=== PATIENT | female | born 1985 | race Caucasian/White ===

== ENCOUNTER → 2016-08-13 | Outpatient (CLI) | payer BC, SELFPAY ==
--- NOTE | 2016-08-15 14:32 | NM ---
EXAM DATE: 08/13/16 PATIENT'S AGE: 31 Patient: VIPUL ROY Facility: [place], [place] Site Site : 1984 Study: NM Gallbladder [id number]/13/2017 9:54:48 AM Ordering Physician: MARTHA ALAMO Final Report: INDICATION: 31 year-old female. Right and left upper quadrant abdominal pain. TECHNIQUE: 3.7 mCi Tc-99m labeled Mebrofenin, 1.5 mcg CCK IV. COMPARISON: Correlation is made with a recent outside right upper quadrant ultrasound August 02, 2016 from [facility]. FINDINGS: There is normal uptake and excretion of tracer by the liver. Activity is identified promptly in the gallbladder within 15 minutes after injection. The gallbladder continues to fill up to 1 hour. After the administration of CCK the gallbladder ejection fraction is calculated at 73%. IMPRESSION: 1. No evidence for cystic duct or common duct obstruction. No biliary leak. 2. Normal gallbladder ejection fraction of 73%. Dictated by Dougie Giordano MD @ 08/13/2016 11:11:58 AM Dictated by: Dougie Giordano MD @ 08/13/2016 11:12:59 (Electronic Signature) Report Signed by Proxy and Original Signed Document filed in the Medical Record. [facility]
== END ==
LOC: MW.NM 08:12
PROVIDERS: ATTEND Physician Assistant
DX: R10.11 Right upper quadrant pain (principal); R10.12 Left upper quadrant pain
CPT/HCPCS: 78227; A9537; J2805

== ENCOUNTER 2020-05-17 10:59 | Day surgery (SDC) | payer BC ==
[2020-05-17] MEDS ORDERED: Lidocaine 2% 5 ML SDV INJECT ONE (12:30)
[2020-05-17] MEDS ORDERED: Ropivacaine 0.5% 5 MG/ML 30 ML SDV INJECT ONE (12:30)
[2020-05-17] MEDS ORDERED: Iopamidol 200-M 10 ML vial ITHECAL ONE (12:30)
[2020-05-17] MEDS ORDERED: Betamethasone Acetate/Betamethasone Sod Phosphate 30 MG/5 ML MDV EPIDUR ONE (12:30)
--- NOTE | 2020-05-17 16:48 | OR ---
SURGEON: Krysta Carty D.O. DATE OF PROCEDURE: 05/17/2020 PRIMARY SURGEON: Krysta Carty DO ASSISTANTS: OR staff present: 1. RT Deven. 2. Irena Perez RN. 3. Sandy Rodríguez RN. WOUND CLASS: I. PREOPERATIVE DIAGNOSES: 1. Thoracic facet syndrome. 2. Thoracic spondylosis bilateral T7,8,9,10. 3. Chronic thoracic back pain. POSTOPERATIVE DIAGNOSES: 1. Thoracic facet syndrome. 2. Thoracic spondylosis bilateral T7,8, 9,10. 3. Chronic thoracic back pain. PROCEDURES PERFORMED: 1. Bilateral T7, T8, T9 medial branch blocks.(Thoracic facet syndrome T7-8, T8- 9 and T9-10) 2. Fluoroscopic guidance for needle placement. 3. Local with oral Valium for sedation. SCREENING QUESTIONS: The patient answered "No" to all the following questions: 1. Are you allergic to iodine, Betadine or latex? 2. Do you have a bleeding disorder? 3. Are you on anti-inflammatories or blood thinners? 4. Do you have any current local or systemic infections? DESCRIPTION OF PROCEDURE: The patient had the procedure thoroughly explained including risks, benefits and alternatives. Consent was signed in my clinic indicating understanding and willingness to proceed. The patient presented to [facility] and was escorted to the dressing room to disrobe and change into a hospital gown. Preoperative history and screening were performed by my nurse. Vital signs were taken and stable. The patient reported that Valium 10 milligrams was taken prior to the procedure. The patient was brought back to the procedure room and placed in the prone position on the procedure room table. A pillow was placed under the abdomen in order to flatten the lumbar lordosis. The back was prepped with ChloraPrep and sterilely draped. All personnel in the procedure room were dressed in appropriate attire including surgical scrubs, head and shoe covers. This was to ensure sterility while in the treatment room. During the time fluoroscopy was in use all personnel in the operating room wore lead rojas with thyroid collars. Sterile technique was used during the procedure. The fluoroscope was positioned to provide a right oblique view. Then the right T7 medial branch block was begun by anesthetizing the skin and soft tissues with 2 cubic centimeters of 2% Preservative-Free Lidocaine with a 25-gauge 1.5 inch needle. There were no signs of infection at the site of needle skin insertions. Using fluoroscopic guidance a sterile 22-gauge 3.5 inch spinal needle was positioned at the superior lateral junction of transverse process of the T8 vertebral body. Precise needle placement was confirmed by fluoroscopy and 0.2 cubic centimeters of IsoVue-200 contrast dye which was injected through microbore tubing under live fluoroscopy and showed no intravascular flow pattern and adequate flow over the target T7 medial branch. Then 01.0 cubic centimeters of celestone and 0.5% Ropivacaine Preservative-Free was injected slowly without complications after negative aspiration. This was repeated as above on the left for the left T7 medial branch block. Then the fluoroscope was positioned to provide a right oblique view for the right T8 medial branch. This was begun by anesthetizing the skin and soft tissues. The fluoroscope was positioned and a sterile 22-gauge 3.5 inch needle was placed at the superior lateral junction of the transverse process of the T9 vertebral body. Precise needle placement was confirmed by fluoroscopy. Then 0.2 cubic centimeters of IsoVue-200 contrast dye was injected through microbore tubing under live fluoroscopy and showed no intravascular flow pattern and adequate flow over the target medial branch. After negative aspiration, 1.0 cubic centimeters of Celestone and 0.5% Ropivacaine was injected without complications. Procedure was repeated as above for the left T8 medial branch block The fluoroscope was then positioned to provide a right T9 medial branch block. This was begun by anesthetizing the skin and soft tissues. Then using fluoroscopic guidance, a sterile 22-gauge 3.5 inch spinal needle was positioned at the right superior lateral transverse process of the T10 vertebral body Precise needle placement was confirmed by fluoroscopy in AP and oblique views, and 0.2 cubic centimeters of IsoVue-200 contrast dye was injected through microbore tubing under live fluoroscopy and showed no intravascular flow pattern and adequate flow over the target T9 medial branch.. After negative aspiration, 1.0 cubic centimeters of Celestone and 0.5% Ropivacaine was injected. No complications were noted. Then the procedure was repeated as above for the left T9 medial branch block The procedure was well tolerated and vital signs were stable during and after the procedure. The staff escorted the patient to the recovery area. The patient was given both oral and written discharge and followup instructions. The patient will follow up with a pain diary which will be evaluated over this evening doing things that would normally cause pain. We will evaluate the efficacy of the diagnostic lumbar medial branch blocks as the patient will follow up in the clinic the next day. The patient was given both oral and written discharge and followup instructions. The patient voiced understanding including understanding of those signs and symptoms that would require emergency care and knows how to contact the office if there are any questions or concerns in the meantime. PREOPERATIVE PAIN: 12/10. POSTOPERATIVE PAIN: 06/12. FOLLOWUP: In the Pain Clinic in 3 weeks. HOGLCHR / KEONL /[id number] YOON
== END 2020-05-17 13:24 ==
LOC: MW.SDS 10:59
PROVIDERS: ATTEND Anesthesiology
DX: G89.29 Other chronic pain (principal); M51.14 Intervertebral disc disorders with radiculopathy, thoracic region; M47.24 Other spondylosis with radiculopathy, thoracic region; M47.894 Other spondylosis, thoracic region; Z88.8 Allergy status to other drugs, medicaments and biological substances; N62 Hypertrophy of breast; M51.36 Other intervertebral disc degeneration, lumbar region; M47.816 Spondylosis without myelopathy or radiculopathy, lumbar region; M79.18 Myalgia, other site; M41.9 Scoliosis, unspecified

== ENCOUNTER 2020-06-28 11:51 | Day surgery (SDC) | payer BC ==
[2020-06-28] MEDS ORDERED: Ropivacaine 0.5% 5 MG/ML 30 ML SDV INJECT ONE (13:00)
[2020-06-28] MEDS ORDERED: Betamethasone Acetate/Betamethasone Sod Phosphate 30 MG/5 ML MDV EPIDUR ONE (13:00)
[2020-06-28] MEDS ORDERED: Lidocaine 2% 5 ML SDV INJECT ONE (13:00)
[2020-06-28] MEDS ORDERED: Iopamidol 200-M 10 ML vial ITHECAL ONE (13:00)
--- NOTE | 2020-06-28 20:13 | OR ---
SURGEON: Krysta Carty D.O. DATE OF PROCEDURE: 06/28/2020 PRIMARY SURGEON: Krysta Carty D.O. TRACK OILER: OR staff present: 1. Ron Shetty RN. 2. Irena Perez RN. 3. Ron Santiago RT. WOUND CLASS: I. PREOPERATIVE DIAGNOSES: 1. Lumbar spondylosis. 2. Lumbar facet joint syndrome, L4-5, L5-S1. 3. Chronic low back pain. Postoperative diagnosis: same PROCEDURES PERFORMED: 1. Right L4-5 facet joint injection. 2. Right L5-S1 facet joint injection. 3. Left L4-5 facet joint injection. 4. Left L5-S1 facet joint injection. 5. Fluoroscopic guidance for needle placement. 6. Local with oral Valium for sedation. SCREENING QUESTIONS: The patient answered "No" to all the following questions: 1. Are you allergic to iodine, Betadine or latex? 2. Do you have a bleeding disorder? 3. Are you on anti-inflammatories or blood thinners? 4. Do you have any current local or systemic infections? The patient had the procedure thoroughly explained including risks, benefits and alternatives. Consent was signed in my clinic indicating understanding and willingness to proceed. The patient presented to [facility] and was escorted to the dressing room to disrobe and change into a hospital gown. Preoperative history and screening were performed by my nurse. Vital signs were taken and stable. The patient reported that Valium 10 milligrams was taken prior to the procedure. The patient was brought back to the procedure room and placed in the prone position on the procedure room table. A pillow was placed under the abdomen in order to flatten the lumbar lordosis. The back was prepped with ChloraPrep and sterilely draped. All personnel in the procedure room were dressed in appropriate attire including surgical scrubs, head and shoe covers. This was to ensure sterility while in the treatment room. During the time fluoroscopy was in use all personnel in the operating room wore lead rojas with thyroid collars. Sterile technique was used during the procedure. Then the fluoroscope was positioned to provide a right oblique view for the right L4-5 facet injection. This was begun by anesthetizing the skin and soft tissues. The fluoroscope was positioned and a sterile 22-gauge 3.5 inch needle was placed at the junction of the "ear of the Suze dog". Precise needle placement was confirmed by fluoroscopy. Then 0.2 cubic centimeters of IsoVue-200 contrast dye was injected through microbore tubing under live fluoroscopy and showed no intravascular flow pattern and adequate flow over the target medial branch. After negative aspiration, 1.5 cubic centimeters of celestone and 0.5% Ropivacaine was injected without complications. The procedure was then repeated for the left L4-5 facet joint injection as above. The fluoroscope was then positioned to provide a right L5-S1 facet joint injection. This was begun by anesthetizing the skin and soft tissues over the right. Then using fluoroscopic guidance, a sterile 22-gauge 3.5 inch spinal needle was positioned at the right "ear of the suze dog.". Precise needle placement was confirmed by fluoroscopy in AP and oblique views, and 0.2 cubic centimeters of IsoVue-200 contrast dye was injected through microbore tubing under live fluoroscopy and showed no intravascular flow pattern and adequate flow over the target nerves. After negative aspiration, 1.5 cubic centimeters of 0.5% Ropivacaine and celestone was injected. No complications were noted. The procedure was then repeated as above for the left L5-S1 facet joint injection. The procedures were well tolerated and vital signs were stable during and after the procedure. The staff escorted the patient to the recovery area. The patient was given both oral and written discharge and followup instructions. The patient will follow up with a pain diary which will be evaluated over this evening doing things that would normally cause pain. We will evaluate the efficacy of the diagnostic lumbar medial branch blocks as the patient will follow up in the clinic the next day. The patient was given both oral and written discharge and followup instructions. The patient voiced understanding including understanding of those signs and symptoms that would require emergency care and knows how to contact the office if there are any questions or concerns in the meantime. PREOPERATIVE PAIN: 12/10. POSTOPERATIVE PAIN: 06/12. FOLLOWUP: In the Pain Clinic in 3 weeks. HOGLCHR / MODL /[id number] YOON
== END 2020-06-28 13:15 ==
LOC: MW.SDS 11:51
PROVIDERS: ATTEND Anesthesiology
DX: G89.29 Other chronic pain (principal); M47.816 Spondylosis without myelopathy or radiculopathy, lumbar region; M47.817 Spondylosis without myelopathy or radiculopathy, lumbosacral region; M79.18 Myalgia, other site; M51.36 Other intervertebral disc degeneration, lumbar region; M41.9 Scoliosis, unspecified; Z88.8 Allergy status to other drugs, medicaments and biological substances; Z79.899 Other long term (current) drug therapy; Z98.890 Other specified postprocedural states

== ENCOUNTER 2020-07-28 11:58 | Day surgery (SDC) | payer BC ==
[2020-07-28] MEDS ORDERED: Iopamidol 200-M 10 ML vial ITHECAL ONE (13:30)
[2020-07-28] MEDS ORDERED: Betamethasone Acetate/Betamethasone Sod Phosphate 30 MG/5 ML MDV EPIDUR ONE (13:30)
[2020-07-28] MEDS ORDERED: Lidocaine 2% 5 ML SDV INJECT ONE (13:30)
[2020-07-28] MEDS ORDERED: Ropivacaine 0.5% 5 MG/ML 30 ML SDV INJECT ONE (13:30)
--- NOTE | 2020-07-28 18:18 | OR ---
SURGEON: Krysta Carty D.O. DATE OF PROCEDURE: 07/28/2020 PRIMARY SURGEON: Krysta Carty DO ASSISTANTS: OR staff present: 1. Andry Lewis RN. 2. Irena Perez RN. 3. RT Estela. WOUND CLASS: I. PREOPERATIVE DIAGNOSIS: Right sacroiliac joint arthropathy. POSTOPERATIVE DIAGNOSIS: Right sacroiliac joint arthropathy. PROCEDURES PERFORMED: 1. Right sacroiliac joint injection. 2. Fluoroscopic guidance for needle placement. 3. Local with oral Valium for sedation. SCREENING QUESTIONS: The patient answered "No" to all the followin. Are you allergic to iodine, Betadine or latex? 2. Do you have a bleeding disorder? 3. Do you have any joint replacements, heart valve replacements or a pacemaker? 4. Are you on any anti-inflammatories or blood thinners? 5. Do you have any current local or systemic infections? DESCRIPTION OF PROCEDURE: The patient had the procedure thoroughly explained including all possible risks, benefits and alternatives. Consent was signed in my clinic indicating understanding and willingness to proceed. The patient presented [facility] outpatient [facility] and was escorted to the dressing room to disrobe and change into a hospital gown. Preoperative vital signs were taken and stable. The patient reported that Valium was taken prior to the procedure. The patient was brought to the procedure room and placed in the prone position on the procedure room table. A pillow was placed under the hips in order to flatten the lumbar lordosis. The back was prepped with ChloraPrep and sterilely draped. All personnel in the operating room were dressed in appropriate attire including surgical scrubs, head and shoe covers. This was to ensure sterility while in the treatment room. During the time fluoroscopy was in use all personnel in the operating room wore lead rojas with thyroid collars. Sterile technique was used during the procedure. The patient was awake and conversant throughout the procedure. The fluoroscope was positioned to provide an oblique view of the right sacroiliac joint. There was no evidence of infection at the site of needle insertion. The skin was anesthetized with 2% Lidocaine with a sterile 27-gauge 1.5 inch needle. Then under fluoroscopy a 22-gauge 3.5 inch spinal needle was placed within the sacroiliac joint in the lower one-third of the joint. IsoVue-200 contrast dye was injected under live fluoroscopy and no intravascular flow pattern was observed. After negative aspiration of heme, the following solution was injected: 0.5% Ropivacaine, Celestone and 2% Lidocaine. The patient tolerated the procedure well and vital signs were stable during and after the procedure. The staff escorted the patient to the recovery area and the patient was released to home in stable condition after a brief stay in the recovery room monitored by the nurse. The patient was given both oral and written discharge and follow up instructions. Recommended follow up in two weeks. The patient is able to contact the office if there are any additional problems or questions in the meantime. The patient was given discharge instruction and verbalizes understanding including understanding of those signs and symptoms that would require emergency care. PREOPERATIVE PAIN: 7/10. POSTOPERATIVE PAIN: 0/10. FOLLOWUP: In the Pain Clinic in 1 month. STEVE / CM /[id number] YOON
== END 2020-07-28 13:59 ==
LOC: MW.SDS 11:58
PROVIDERS: ATTEND Anesthesiology
DX: G89.29 Other chronic pain (principal); M47.818 Spondylosis without myelopathy or radiculopathy, sacral and sacrococcygeal region; M47.816 Spondylosis without myelopathy or radiculopathy, lumbar region; J45.909 Unspecified asthma, uncomplicated; Z79.899 Other long term (current) drug therapy; M51.36 Other intervertebral disc degeneration, lumbar region; M51.14 Intervertebral disc disorders with radiculopathy, thoracic region; M41.9 Scoliosis, unspecified; G47.00 Insomnia, unspecified; Z88.8 Allergy status to other drugs, medicaments and biological substances; Z98.890 Other specified postprocedural states